=== PATIENT | male | born 1955 | race Caucasian/White ===

== ENCOUNTER 2023-10-16 08:15 | Outpatient (AMB) | payer MEDICARE, MEDICAID, SELFPAY ==
[2023-10-16 09:09] VITALS: BP 126/70; PULSE 64; TEMP 36.6; O2SAT 98; BMI 34.1
--- NOTE | 2023-10-16 09:09 | MHC.OFFWIV ---
Intake Vital Signs 10/16/23 09:09 Height 5 ft 6 in Weight 211 lb BMI 34.1 BP 126/70 Blood Pressure Location Lt brachial Position Sitting Pulse 64 Pulse Source Pulse Oximeter Temp 97.8 F Temp Source Temporal Artery Scan Pulse Oximetry (%) 98 Oxygen Delivery Method Room Air Intake Visit Reasons: EP lft hand cut Intake Note: pt is here today for lft hand cut started yesterday Patient Tobacco Use Status: Former Tobacco user Allergies codeine Allergy (Unknown, Verified 10/16/23 09:13) sensitivity No Known Allergies Allergy (Verified 10/16/23 09:13) Do you need a note to return to daycare/school/sports/work: No HPI HPI Comments History of Present Illness Details He presents to office with L hand injury Patient is on Eliquis and injured his L hand yesterday afternoon No pain, 0/10 He hit L hand on edge of tractor He is UTD on tetanus He cleaned area with water and light soap He used topical antiviotics it His current insurance ends Saturday and he gets the new insurane is October 22 [facility] Social History Patient Tobacco Use Status: Former Tobacco user Review of Systems Const Denies chills and Denies fever(s) Musc Denies myalgias and Reports deformity Skin/Breast Reports wounds Physical Exam Vital Signs: Last Vital Signs Temp 97.8 F 10/16/23 09:09 Pulse 64 10/16/23 09:09 BP 126/70 10/16/23 09:09 Pulse Ox 98 10/16/23 09:09 Oxygen Delivery Method Room Air 10/16/23 09:09 BMI result Body Mass Index 34.1 General: Non-toxic, NAD. Speaking full sentences. Skin: Warm dry throughout L hand dorsal aspect; Pt has approx 2cm x 2cm skin circular avulsion to area between 1st and 2nd metacarpal. No bleeding or FB noted. Small surrounding ecchymosis without edema, erythema or warmth. No discharge Eye: EOMI Respiratory: No respiratory distress MSK: Full ROM extremities. No tenderness to palpation metacarpal bones. + full ROM digits R hand Neurology: A/O. No aphasia or facial droop. Gait without abnormality Psych: Good mood and affect Assessment & Plan Assessment & Plan (1) Open wound, hand: Code(s): S61.409A - Unspecified open wound of unspecified hand, initial encounter Qualifiers: Encounter type: initial encounter Open wound type: unspecified Foreign body presence: without foreign body Laterality: left Qualified Code(s): S61.402A - Unspecified open wound of left hand, initial encounter Plan: Patient seen and evaluated. Wound shows no infection Due to lapse in insurance will provide oral antibiotic script to pharmacy in case he needs it. We discussed s/s of infection and when to take medicine Otherwise will use mupirocin Discussed wound care Patient gave verbal understanding and had no additional questions or concerns at time of discharge All questions answered Medications: New mupirocin 2% 1 appl topical BID 22 grams 0RF cephalexin 500 mg PO Q12H 14 caps 0RF Coding Level of Care Code Est Pt Level 3 (32163) Diagnoses Open wound of left hand without foreign body, unspecified wound type, initial encounter S61.402A Encounter type: initial encounter Open wound type: unspecified Foreign body presence: without foreign body Laterality: left
== END 2023-10-16 10:43 | disposition home or self-care (01) ==
PROVIDERS: PCP Hospitalist; Visit Provider Physician Assistant
DX: S61.402A Unspecified open wound of left hand, initial encounter (principal)
CPT/HCPCS: 99213

== ENCOUNTER 2023-11-25 11:10 | Outpatient (AMB) | payer MEDICARE, SELFPAY ==
[2023-11-25 12:55] VITALS: BP 120/90; PULSE 77; TEMP 36.6; O2SAT 97; BMI 34.1
--- NOTE | 2023-11-25 12:55 | MHC.OFFWIV ---
Intake Vital Signs 11/25/23 12:55 Height 5 ft 6 in Weight 211 lb BMI 34.1 BP 120/90 H Blood Pressure Location Lt brachial Position Sitting Pulse 77 Pulse Source Pulse Oximeter Temp 97.8 F Temp Source Temporal Artery Scan Pulse Oximetry (%) 97 Oxygen Delivery Method Room Air Intake Visit Reasons: EP Gout LT big toe Intake Note: pt is here today for gout lft big toe started 3 days ago Patient Tobacco Use Status: Former Tobacco user Allergies codeine Allergy (Unknown, Verified 11/25/23 13:05) sensitivity No Known Allergies Allergy (Verified 11/25/23 13:05) Do you need a note to return to daycare/school/sports/work: No HPI HPI Comments History of Present Illness Details Patient presents to the walk-in today for sick visit Endorses pain, redness, swelling to base of left great toe Endorses history of gout Currently on Eliquis, unable to take nonsteroidal anti-inflammatory medications States did drink beer in each shrimp prior to this flare PFSH Social History Patient Tobacco Use Status: Former Tobacco user Review of Systems Const All systems reviewed & are unremarkable except as noted in HPI and below Physical Exam Vital Signs: Last Vital Signs Temp 97.8 F 11/25/23 12:55 Pulse 77 11/25/23 12:55 BP 120/90 H 11/25/23 12:55 Pulse Ox 97 11/25/23 12:55 Oxygen Delivery Method Room Air 11/25/23 12:55 BMI result Body Mass Index 34.1 General: awake, alert, oriented. Answers questions appropriately. Fully engaged in examination. Skin: warm, dry, intact HEENT: Normocephalic. Hearing intact. Cardiac: External chest normal in appearance. Respiratory: No cough, audible wheezing or stridor. Abdomen: without gross distension. MS: Redness, warmth, swelling base of left great toe. Tenderness to palpation. Neurological: Oriented to person, place, time and situation. Thought process intact. Ambulates with limp Psychiatric: Appropriate mood and affect. Good judgment and insight. Assessment & Plan Assessment & Plan (1) Gout: Code(s): M10.9 - Gout, unspecified Plan Prednisone 40 mg p.o. daily x7 days. Unable to take nonsteroidal anti-inflammatory medications orally due to use of Eliquis. Recommend [id number] topical Voltaren cream. Patient advised on recommended dietary modifications to avoid future flares Follow up with PCP or return here for any new or worsening symptoms Medications: New prednisone 40 mg (2 x 20 mg) PO DAILY 7 days 14 tabs 1RF Coding Level of Care Code Est Pt Level 3 (83079) Diagnoses Gout M10.9
== END 2023-11-25 14:04 | disposition home or self-care (01) ==
PROVIDERS: PCP Hospitalist; Visit Provider Registered Nurse Emergency
DX: M10.9 Gout, unspecified (principal)
CPT/HCPCS: 99213